=== PATIENT | female | born 1950 | race Caucasian/White ===

== ENCOUNTER 2017-01-28 10:45 | Outpatient (CLI) | payer MEDICARE, OTHER ==
--- NOTE | 2017-01-28 17:01 | RAD ---
CHEST TWO VIEW 01/28/17 HISTORY: Dyspnea. COMPARISON: None. FINDINGS: The lungs are without focal air space consolidation, pneumothorax or effusion. The findings are hype rinflated. The cardiac silhouette and mediastinal contours appear within normal limits. Mild spondyl osis mid thoracic spine. Moderate vascular calcifications of the aorta. IMPRESSION: No acute cardiopulmonary process. POS: [facility]
== END 2017-01-28 10:46 | disposition home or self-care (01) ==
LOC: RAD 10:45
PROVIDERS: ATTEND Internal Medicine
DX: R06.00 Dyspnea, unspecified (principal)
CPT/HCPCS: 71020

== ENCOUNTER 2017-04-13 12:05 | Outpatient (CLI) | payer MEDICARE, OTHER | END 2017-04-13 12:06 | disposition home or self-care (01) | LOC: CP 12:05 | PROVIDERS: ATTEND Internal Medicine | DX: J44.9 Chronic obstructive pulmonary disease, unspecified (principal) | CPT/HCPCS: 94060; 94727; 94729 ==

== ENCOUNTER 2017-05-16 09:22 | Outpatient (CLI) | payer MEDICARE, OTHER | END 2017-05-16 09:23 | disposition home or self-care (01) | LOC: MAMMO 09:22 | PROVIDERS: ATTEND Internal Medicine Hematology & Oncology | DX: Z13.820 Encounter for screening for osteoporosis (principal); M81.8 Other osteoporosis without current pathological fracture; T47.8X5A Adverse effect of other agents primarily affecting gastrointestinal system, initial encounter; M81.0 Age-related osteoporosis without current pathological fracture | CPT/HCPCS: 77080 ==

== ENCOUNTER 2017-12-06 13:47 | Outpatient (CLI) | payer MEDICARE, OTHER | END 2017-12-06 13:48 | disposition home or self-care (01) | LOC: BICMAMMO 13:47 | PROVIDERS: ATTEND Internal Medicine Hematology & Oncology | DX: Z08 Encounter for follow-up examination after completed treatment for malignant neoplasm (principal); Z85.3 Personal history of malignant neoplasm of breast | CPT/HCPCS: 77066; G0279 ==

== ENCOUNTER 2018-05-18 09:57 | Outpatient (CLI) | payer MEDICARE, OTHER ==
--- NOTE | 2018-05-18 16:14 | BD ---
Exam: DEXA Bone Density History: 67-year-old female with osteoporosis. Comparison: 05-17-16 Lumbar Spine: BMD (g/cm2) L1 0.905 T-Score: -0.8 L2 1.073 T-Score: 0.4 L3 1.157 T-Score: 0.7 L4 0.946 T-Score: -1.0 L1-L4 1.015 T-Score: -0.3 Within normal limits showing 11.5% increase in bone density from the prior study, although the L2 and L3 measurements may be falsely high because of sclerosis. Femoral Neck: 0.523 T-Score: -2.9 Total Femur: 0.789 T-Score: -1.3 Evidence for osteoporosis with high risk for fracture. Bone mineral density has increased 13.9% from the prior study. FRAX score not reported because some T-score at or below -2.5 and patient is treated for osteoporosis . POS: [facility]
== END 2018-05-18 09:58 | disposition home or self-care (01) ==
LOC: BICMAMMO 09:57
PROVIDERS: ATTEND Internal Medicine Hematology & Oncology
DX: M81.0 Age-related osteoporosis without current pathological fracture (principal); M85.88 Other specified disorders of bone density and structure, other site; Z85.3 Personal history of malignant neoplasm of breast
CPT/HCPCS: 77080

== ENCOUNTER 2018-12-11 09:57 | Outpatient (CLI) | payer MEDICARE, OTHER ==
--- NOTE | 2018-12-11 10:41 | MMO ---
Bilateral MAMMO Bilat Diag [facility]. CLINICAL HISTORY: Patient is 68 years old and is seen for diagnostic exam. The patient has no family history of breast cancer. The patient has a history of malignant (generic) in the left breast at age 63. VIEWS: The views performed were: bilateral craniocaudal with tomosynthesis; bilateral mediolateral oblique with tomosynthesis; and bilateral mediolateral with tomosynthesis. FILMS COMPARED: The present examination has been compared to prior imaging studies performed at [facility] on 05/12/2015, 11/10/2015, 12/02/2016 and 12/06/2017. MAMMOGRAM FINDINGS: There are scattered fibroglandular densities. There are stable benign appearing calcifications seen in both breasts. There are also vascular calcifications. There are no suspicious masses, suspicious calcifications, or new areas of architectural distortion. IMPRESSION: THERE IS NO MAMMOGRAPHIC EVIDENCE OF MALIGNANCY. A ROUTINE FOLLOW-UP MAMMOGRAM IN 1 YEAR IS RECOMMENDED. THE RESULTS OF THIS EXAM WERE SENT TO THE PATIENT. ACR BI-RADS Category 2 - Benign finding MAMMOGRAPHY NOTE: 1. A negative mammogram report should not delay a biopsy if a dominant of clinically suspicious mass is present. 2. Approximately 10% to 15% of breast cancers are not detected by mammography. 3. Adenosis and dense breasts may obscure an underlying neoplasm. Reported by: MICHELLE LEMUS MD Electonically Signed: [id number]
== END 2018-12-11 09:58 | disposition home or self-care (01) ==
LOC: BICMAMMO 09:57
PROVIDERS: ATTEND Internal Medicine Hematology & Oncology
DX: Z08 Encounter for follow-up examination after completed treatment for malignant neoplasm (principal); Z85.3 Personal history of malignant neoplasm of breast
CPT/HCPCS: 77066; G0279

== ENCOUNTER 2019-05-21 10:21 | Outpatient (CLI) | payer MEDICARE, OTHER ==
--- NOTE | 2019-05-21 11:49 | BD ---
DEXA SCAN: DATE: 05/21/2019. PROVIDED CLINICAL HISTORY: Postmenopausal screening. FINDINGS: Comparison 05/18/2018. Lumbar Spine: BMD (g/cm2) L1 0.904 T-Score: -0.8 L2 0.924 T-Score: -0.9 L3 1.135 T-Score: -0.5 L4 0.984 T-Score: -0.7 L1-L4 0.989 T-Score: -0.5 Femoral Neck: 0.539 T-Score: -2.8 Total Femur: 0.764 T-Score: -1.5 Compared to the prior examination, there has been a statistically significant decrease in bone minera l density in the lumbar spine, remaining normal in its T-score however. IMPRESSION: Calculated bone mineral density involving the left femoral neck meets WHO criteria for osteoporosis a nd places the patient at prominent increased risk for fracture. POS: [facility]
== END 2019-05-21 10:22 | disposition home or self-care (01) ==
LOC: BICMAMMO 10:21
PROVIDERS: ATTEND Internal Medicine Hematology & Oncology
DX: Z13.820 Encounter for screening for osteoporosis (principal); C50.919 Malignant neoplasm of unspecified site of unspecified female breast; M81.0 Age-related osteoporosis without current pathological fracture; Z78.0 Asymptomatic menopausal state
CPT/HCPCS: 77080

== ENCOUNTER 2020-06-10 09:44 | Outpatient (CLI) | payer MEDICARE, OTHER ==
--- NOTE | 2020-06-10 12:09 | BD ---
BONE DENSITOMETRY USING DEXA: HISTORY: Postmenopausal screening for osteoporosis. FINDINGS: Lumbar Spine: BMD (g/cm2) L1 0.902 T-Score: -0.8 Z-Score: 1.0 L2 1.074 T-Score: 0.4 Z-Score: 2.4 L3 1.179 T-Score: 0.9 Z-Score: 3.0 L4 0.993 T-Score: -0.6 Z-Score: 1.5 L1-L4 1.032 T-Score: -0.1 Z-Score: 1.9 Femoral Neck: 0.572 T-Score: -2.5 Z-Score: -0.8 Total Femur: 0.738 T-Score: -1.7 Z-Score: -0.2 There has been interval improvement of 4.4% in the BMD of the lumbar spine and a reduction of 3.4% in the BMD of the proximal femur since 05/21/2019. Impression: Osteoporosis. POS: [facility]
== END 2020-06-10 09:45 | disposition home or self-care (01) ==
LOC: BICMAMMO 09:44
PROVIDERS: ATTEND Internal Medicine Hematology & Oncology
DX: M81.8 Other osteoporosis without current pathological fracture (principal); T47.8X5A Adverse effect of other agents primarily affecting gastrointestinal system, initial encounter
CPT/HCPCS: 77080

== ENCOUNTER 2021-02-19 10:58 | Outpatient (CLI) | payer MEDICARE, OTHER | END 2021-02-19 10:59 | disposition home or self-care (01) | LOC: BICMAMMO 10:58 | PROVIDERS: ATTEND Internal Medicine | DX: Z12.31 Encounter for screening mammogram for malignant neoplasm of breast (principal); Z85.3 Personal history of malignant neoplasm of breast; Z98.890 Other specified postprocedural states | CPT/HCPCS: 77063; 77067 ==

== ENCOUNTER 2021-09-28 14:33 | Inpatient (IN) | payer MEDICARE, OTHER ==
[~2021-09-28 14:33] MED LIST: Iopamidol-370 76% 500 ML 1 ML ONE
[2021-09-28 14:48] LABS: #Basophils 0.1 thou/uL (0.0-0.2); #Eosinphils 0.3 thou/uL (0.0-0.7); #Lymphocytes 1.2 thou/uL (1.20-3.40); #Monocytes 0.6 thou/uL (0.11-0.59); #Neutrophils 4.1 thou/uL (1.40-6.50); %Basophils 1.2 % (0.0-1.0); %Eosinophils 5.2 % (0.0-10.0); %Lymphocytes 18.8 % (21.0-51.0); %Monocytes 9.9 % (0.0-10.0); %Neutrophils 64.9 % (42.0-75.0); Hemoglobin 11.1 g/dL (12.0-16.0); Mean Corpuscular HGB CONC 33.6 g/dL (32.0-36.0); Mean Corpuscular Hemoglobin 32.7 pg (27.0-31.0); Mean Corpuscular Volume 97.2 fL (78.0-98.0); Mean Platelet Volume 6.2 fL (7.4-10.4); Platelet Count 383 thou/uL (130-400); RBC Distribution Width 12.3 % (11.5-14.5); Red Blood Cell (RBC) Count 3.39 mill/uL (4.20-5.40); White Blood Cell (WBC) Count 6.2 thou/uL (4.8-10.8)
[2021-09-28] MEDS ORDERED: Ondansetron PF 4 MG/2 ML Vial ONE (14:48)
[2021-09-28 15:01] LABS: INR-International Normal Ratio 0.9; Prothrombin Time 12.6 sec (12.0-14.7)
[2021-09-28 15:02] LABS: PTT 33.3 sec (22.9-36.1)
[2021-09-28 15:05] LABS: ALT (SGPT) 17 U/L (8-55); AST (SGOT) 31 U/L (5-34); Albumin 4.4 g/dL (3.4-4.8); Alkaline Phosphatase 90 U/L (40-110); Anion Gap 16 mmol/L (10-20); BUN (Urea Nitrogen) 12 mg/dL (9.8-20.1); Bilirubin, Total 0.5 mg/dL (0.2-1.2); CK (CPK) 222 U/L (29-168); Calc. Creatinine Clearance 0 mL/min (70-130); Calcium 9.1 mg/dL (7.8-10.44); Carbon Dioxide 18 mmol/L (23-31); Chloride 95 mmol/L (98-107); Globulin 2.7 g/dL (2.4-3.5); Glucose 94 mg/dL (80-115); Potassium 4.9 mmol/L (3.5-5.1); Protein, Total 7.1 g/dL (5.8-8.1); Sodium 124 mmol/L (136-145)
[2021-09-28] MEDS ORDERED: Acetaminophen 325 MG TAB ONE (15:56)
[2021-09-28 17:44] LABS: Bilirubin Negative (Negative); Blood, Urine Negative (Negative); Clarity Clear (Clear); Glucose, Urine (Dipstick) Normal (Negative); Ketone, Urine Negative (Negative); Leukocyte 25 Leu/uL (Negative); Nitrite Negative (Negative); Protein, Urine (Dipstick) 100 mg/dL (Neg-Trace); RBC/HPF 0-3 HPF (0-3); Specific Gravity, Urine 1.022 (1.002-1.036); Squamous Epithelial None Seen HPF (0-3); Urobilinogen Normal mg/dL (Less than 2)
[2021-09-28 17:45] LABS: Bacteria/HPF 1+ HPF (None Seen)
[2021-09-28] MEDS ORDERED: Electrolyte Replacement Protocol 1 EACH FS SCH (18:30)
[2021-09-28] MEDS ORDERED: Aspirin Chewable 81 MG TAB ONE (18:39)
[2021-09-28 19:41] LABS: Magnesium 1.8 mg/dL (1.6-2.6); Phosphorus 3.8 mg/dL (2.3-4.7)
[2021-09-28 19:46] LABS: Troponin I 0.018 ng/mL (< 0.028)
[2021-09-28] MEDS ORDERED: Ondansetron PF 4 MG/2 ML Vial IVP PRN (19:47)
[2021-09-28] MEDS ORDERED: Acetaminophen 325 MG TAB PO PRN (19:47)
[2021-09-28] MEDS ORDERED: HYDROcodone/Acetaminophen 5/325 mg Tablet PO PRN (19:47)
[2021-09-28] MEDS ORDERED: Magnesium 2 GM/50 ML(in water) 2 GM in Premix Bag 1 BAG IVPB SCH (20:15)
[2021-09-28] MEDS: cefTRIAXone\\ROCEPHIN 1 GM in Sodium Chloride 0.9% 100 ML IVPB SCH (21:36)
[2021-09-28] MEDS: Sodium Chloride 0.9% 1,000 ML IV SCH (21:36)
[2021-09-28] MEDS: Sodium Bicarbonate Tab 325 MG TAB PO SCH (21:37)
[2021-09-28 22:18] VITALS: BMI 21.6
[2021-09-28 22:35] LABS: Troponin I 0.029 ng/mL (< 0.028)
[2021-09-29] MEDS ORDERED: Amlodipine 5 MG TAB PO SCH ×2 (02:30→16:30)
[2021-09-29 04:47] LABS: Anion Gap 12 mmol/L (10-20); BUN (Urea Nitrogen) 12 mg/dL (9.8-20.1); Calc. Creatinine Clearance 37 mL/min (70-130); Calcium 8.1 mg/dL (7.8-10.44); Carbon Dioxide 21 mmol/L (23-31); Chloride 101 mmol/L (98-107); Glucose 76 mg/dL (80-115); Potassium 4.2 mmol/L (3.5-5.1); Sodium 130 mmol/L (136-145)
[2021-09-29 05:29] LABS: Eosinophils 6 % (0-10); Hemoglobin 9.7 g/dL (12.0-16.0); Lymphocytes 34 % (21-51); MDiff Complete? YES; Mean Corpuscular HGB CONC 33.8 g/dL (32.0-36.0); Mean Corpuscular Hemoglobin 33.3 pg (27.0-31.0); Mean Corpuscular Volume 98.7 fL (78.0-98.0); Mean Platelet Volume 6.5 fL (7.4-10.4); Monocytes 11 % (0-10); Neutrophil 47 % (42-75); Platelet Count 332 thou/uL (130-400); Platelet Morphology Comment Appears Adequate; RBC Distribution Width 12.4 % (11.5-14.5); RBC Morphology Normal; Red Blood Cell (RBC) Count 2.91 mill/uL (4.20-5.40); White Blood Cell (WBC) Count 3.9 thou/uL (4.8-10.8)
[2021-09-29] MEDS: hydrALAZINE 20 MG/ML VIAL SLOW IVP PRN ×3 (05:53→20:38)
[2021-09-29 07:55] LABS: Creatinine, Urine Less than 20.00 mg/dL (47-110); Protein, Urine Random Quant 68 mg/dL (1-14)
[2021-09-29] MEDS: Enoxaparin Sodium 30 MG/0.3 ML SYRINGE SC SCH (08:45)
[2021-09-29] MEDS: Sodium Bicarbonate Tab 325 MG TAB PO SCH ×2 (08:45→20:38)
[2021-09-29] MEDS: Sodium Chloride 0.9% 1,000 ML IV SCH ×2 (09:33→18:49)
[2021-09-29 12:32] LABS: SARS-CoV-2 PCR by NAA Not Detected (NotDetected)
[2021-09-29 17:09] LABS: Anion Gap 13 mmol/L (10-20); BUN (Urea Nitrogen) 15 mg/dL (9.8-20.1); Calc. Creatinine Clearance 28 mL/min (70-130); Calcium 8.8 mg/dL (7.8-10.44); Carbon Dioxide 20 mmol/L (23-31); Chloride 98 mmol/L (98-107); Glucose 114 mg/dL (80-115); Potassium 4.2 mmol/L (3.5-5.1); Sodium 127 mmol/L (136-145)
[2021-09-29] MEDS ORDERED: Carvedilol 6.25 MG TAB PO SCH (18:00)
[2021-09-29] MEDS: cefTRIAXone\\ROCEPHIN 1 GM in Sodium Chloride 0.9% 100 ML IVPB SCH (20:37)
[2021-09-30] MEDS: Sodium Chloride 0.9% 1,000 ML IV SCH ×2 (04:40→18:11)
[2021-09-30 04:45] LABS: Hemoglobin 9.4 g/dL (12.0-16.0); Mean Corpuscular HGB CONC 33.7 g/dL (32.0-36.0); Mean Corpuscular Hemoglobin 33.6 pg (27.0-31.0); Mean Corpuscular Volume 99.8 fL (78.0-98.0); Mean Platelet Volume 6.5 fL (7.4-10.4); Platelet Count 293 thou/uL (130-400); RBC Distribution Width 12.5 % (11.5-14.5); Red Blood Cell (RBC) Count 2.79 mill/uL (4.20-5.40); White Blood Cell (WBC) Count 3.7 thou/uL (4.8-10.8)
[2021-09-30 05:27] LABS: Anion Gap 11 mmol/L (10-20); BUN (Urea Nitrogen) 15 mg/dL (9.8-20.1); Calc. Creatinine Clearance 29 mL/min (70-130); Carbon Dioxide 21 mmol/L (23-31); Chloride 102 mmol/L (98-107); Sodium 130 mmol/L (136-145)
[2021-09-30 05:28] LABS: BUN/Creatinine Ratio 9.55; Calcium 8.2 mg/dL (7.8-10.44); Glucose 98 mg/dL (80-115); Magnesium 1.9 mg/dL (1.6-2.6); Phosphorus 3.9 mg/dL (2.3-4.7)
[2021-09-30] MEDS ORDERED: Magnesium 2 GM/50 ML(in water) 2 GM in Premix Bag 1 BAG IVPB SCH (08:00)
[2021-09-30] MEDS ORDERED: Amlodipine 5 MG TAB PO SCH (09:00)
[2021-09-30] MEDS: Carvedilol 6.25 MG TAB PO SCH ×2 (09:53→20:02)
[2021-09-30] MEDS: Enoxaparin Sodium 30 MG/0.3 ML SYRINGE SC SCH (09:54)
[2021-09-30] MEDS: Amlodipine 10 MG TAB PO SCH (09:54)
[2021-09-30] MEDS: Sodium Bicarbonate Tab 325 MG TAB PO SCH ×3 (09:55→20:03)
[2021-09-30] MEDS: cefTRIAXone\\ROCEPHIN 1 GM in Sodium Chloride 0.9% 100 ML IVPB SCH (20:02)
[2021-10-01] MEDS: Sodium Chloride 0.9% 1,000 ML IV SCH (02:28)
[2021-10-01 07:42] LABS: Albumin 3.4 g/dL (3.4-4.8); Anion Gap 10 mmol/L (10-20); BUN (Urea Nitrogen) 14 mg/dL (9.8-20.1); BUN/Creatinine Ratio 11.67; Calc. Creatinine Clearance 38 mL/min (70-130); Calcium 8.8 mg/dL (7.8-10.44); Carbon Dioxide 22 mmol/L (23-31); Chloride 105 mmol/L (98-107); Glucose 109 mg/dL (80-115); Potassium 4.3 mmol/L (3.5-5.1); Sodium 133 mmol/L (136-145)
[2021-10-01] MEDS: Amlodipine 10 MG TAB PO SCH (08:32)
[2021-10-01] MEDS: Carvedilol 6.25 MG TAB PO SCH (08:32)
[2021-10-01] MEDS: Enoxaparin Sodium 30 MG/0.3 ML SYRINGE SC SCH (08:33)
[2021-10-01] MEDS: Sodium Bicarbonate Tab 325 MG TAB PO SCH (08:33)
[2021-10-01 12:25] VITALS: BP 142/67; TEMP 97.6
[2021-10-01 14:46] LABS: Anion Gap 10 mmol/L (10-20); BUN (Urea Nitrogen) 15 mg/dL (9.8-20.1); Calc. Creatinine Clearance 37 mL/min (70-130); Calcium 8.4 mg/dL (7.8-10.44); Carbon Dioxide 21 mmol/L (23-31); Chloride 103 mmol/L (98-107); Glucose 133 mg/dL (80-115); Potassium 4.4 mmol/L (3.5-5.1); Sodium 130 mmol/L (136-145)
== END 2021-10-01 16:13 | disposition home or self-care (01) | DRG 643 ==
LOC: ERS 14:33 → 2NO 18:20 → OBSVTOIN 09-30 16:57
PROVIDERS: ADMIT Emergency Medicine; ATTEND Emergency Medicine
DX: E22.2 Syndrome of inappropriate secretion of antidiuretic hormone (principal); Z20.822 Contact with and (suspected) exposure to COVID-19; G93.41 Metabolic encephalopathy; N30.00 Acute cystitis without hematuria; N17.9 Acute kidney failure, unspecified; E87.2 Acidosis; T46.4X5A Adverse effect of angiotensin-converting-enzyme inhibitors, initial encounter; I45.6 Pre-excitation syndrome; R21 Rash and other nonspecific skin eruption; E86.9 Volume depletion, unspecified; N18.30 Chronic kidney disease, stage 3 unspecified; I12.9 Hypertensive chronic kidney disease with stage 1 through stage 4 chronic kidney disease, or unspecified chronic kidney disease; Z79.899 Other long term (current) drug therapy; Z79.51 Long term (current) use of inhaled steroids; Z90.49 Acquired absence of other specified parts of digestive tract; Z90.10 Acquired absence of unspecified breast and nipple; Z87.891 Personal history of nicotine dependence; Z85.3 Personal history of malignant neoplasm of breast; Z79.811 Long term (current) use of aromatase inhibitors
CPT/HCPCS: 36415; 70450; 70496; 70498; 70551; 80048; 80053; 80069; 81003; 81015; 82550; 82570; 83735; 83930; 83935; 84100; 84156; 84300; 84484; 85025; 85027; 85610; 85730; 93005; 96372; 96374; 96375; 96376; G0378; J0360; J0696; J1650; J2405; J3475; J3490; J7050; Q9967; U0003; U0005

== ENCOUNTER 2022-05-31 13:10 | Outpatient (CLI) | payer MEDICARE, OTHER | END 2022-05-31 13:11 | disposition home or self-care (01) | LOC: BICMAMMO 13:10 | PROVIDERS: ATTEND Internal Medicine | DX: Z12.31 Encounter for screening mammogram for malignant neoplasm of breast (principal); M85.88 Other specified disorders of bone density and structure, other site; N63.31 Unspecified lump in axillary tail of the right breast; M81.0 Age-related osteoporosis without current pathological fracture; Z85.3 Personal history of malignant neoplasm of breast; Z98.890 Other specified postprocedural states | CPT/HCPCS: 77063; 77067; 77080 ==

== ENCOUNTER 2022-06-03 13:21 | Outpatient (CLI) | payer MEDICARE, OTHER | END 2022-06-03 13:22 | disposition home or self-care (01) | LOC: BICMAMMO 13:21 | PROVIDERS: ATTEND Internal Medicine | DX: N63.31 Unspecified lump in axillary tail of the right breast (principal) | CPT/HCPCS: 77065; G0279 ==

== ENCOUNTER 2023-05-22 12:29 | Emergency (ER) | payer MEDICARE, OTHER ==
[2023-05-22] MEDS ORDERED: oxyCODONE 5 MG TAB PO SCH (13:45)
[2023-05-22] MEDS ORDERED: Morphine 4 MG/ML VIAL ONE (14:10)
[2023-05-22] MEDS ORDERED: Ondansetron ODT 4 MG TAB ONE ×2 (14:16→18:08)
[2023-05-22 15:26] LABS: #Eosinphils 0.3 thou/uL (0.0-0.7); #Monocytes 0.3 thou/uL (0.11-0.59); %Basophils 0.9 % (0.0-1.0); %Lymphocytes 21.4 % (21.0-51.0); %Monocytes 7.6 % (0.0-10.0); %Neutrophils 62.1 % (42.0-75.0); Hematocrit 37.2 % (36.0-47.0); Hemoglobin 12.7 g/dL (12.0-16.0); Mean Corpuscular HGB CONC 34.1 g/dL (32.0-36.0); Mean Corpuscular Hemoglobin 32.2 pg (27.0-31.0); Mean Corpuscular Volume 94.4 fl (78.0-98.0); Mean Platelet Volume 8.9 fL (7.4-10.4); Platelet Count 302 10x3/uL (130-400); RBC Distribution Width 12.9 % (11.5-14.5); Red Blood Cell (RBC) Count 3.94 mill/uL (4.20-5.40); White Blood Cell (WBC) Count 3.3 10x3/uL (4.8-10.8)
[2023-05-22 15:38] LABS: Prothrombin Time 12.9 sec (12.0-14.7)
[2023-05-22 15:39] LABS: PTT 35.1 sec (22.9-36.1)
[2023-05-22 15:42] LABS: Troponin I Less than 0.010 ng/mL (< 0.028)
== END 2023-05-22 18:15 | disposition home or self-care (01) ==
LOC: ERS 12:29
DX: S22.42XA Multiple fractures of ribs, left side, initial encounter for closed fracture (principal); I31.39 Other pericardial effusion (noninflammatory); I10 Essential (primary) hypertension; E78.00 Pure hypercholesterolemia, unspecified; Z87.891 Personal history of nicotine dependence; Z79.899 Other long term (current) drug therapy; W01.10XA Fall on same level from slipping, tripping and stumbling with subsequent striking against unspecified object, initial encounter
CPT/HCPCS: 71046; 71250; 84484; 85025; 85610; 85730; 93005; 93306; 96372; J2270; Q0162

== ENCOUNTER 2023-10-05 12:23 | Outpatient (CLI) | payer MEDICARE, OTHER | END 2023-10-05 12:24 | disposition home or self-care (01) | LOC: BICMAMMO 12:23 | PROVIDERS: ATTEND Internal Medicine | DX: Z12.31 Encounter for screening mammogram for malignant neoplasm of breast (principal); Z85.3 Personal history of malignant neoplasm of breast; Z98.890 Other specified postprocedural states | CPT/HCPCS: 77063; 77067 ==

== ENCOUNTER 2024-06-12 14:22 | Outpatient (CLI) | payer MEDICARE, OTHER | END 2024-06-12 14:23 | disposition home or self-care (01) | LOC: BICRAD 14:22 | PROVIDERS: ATTEND Physician Assistant | DX: M54.50 Low back pain, unspecified (principal); M25.552 Pain in left hip; M47.816 Spondylosis without myelopathy or radiculopathy, lumbar region | CPT/HCPCS: 72100 ==